=== PATIENT | female | born 1995 | race Hispanic/Latino ===

== ENCOUNTER 2017-03-20 12:56 | Emergency (ER) | payer MEDICAID, OTHER ==
[2017-03-20 13:07] VITALS: BMI 20.3
[2017-03-20 13:09] VITALS: BP 115/88; PULSE 80; RESP 16; TEMP 98.7; O2SAT 100
--- NOTE | 2017-03-20 14:12 | ED PDOC ---
HPI: Female Pain Time Seen by Provider: 03/20/17 13:12 Chief Complaint (Nursing): Female Genitourinary Chief Complaint (Provider): rash on external genitals History Per: Patient History/Exam Limitations: no limitations Onset/Duration Of Symptoms: Days Current Symptoms Are (Timing): Still Present Severity: Moderate Pain Scale Rating Of: 6 Associated Symptoms: denies: Fever, Chills, Nausea, Vomiting, Diarrhea, Loss Of Appetite, Back Pain, Chest Pain, Constipation, Urinary Symptoms Additional Complaint(s): Pt is sexually active with one partner. No protection. Past Medical History Reviewed: Historical Data, Nursing Documentation, Vital Signs Vital Signs: Last Vital Signs Temp 98.7 F 03/20/17 13:07 Pulse 80 03/20/17 13:07 Resp 16 03/20/17 13:07 BP 115/88 03/20/17 13:07 Pulse Ox 100 03/20/17 13:07 - Medical History PMH: No Chronic Diseases - Surgical History Surgical History: No Surg Hx - Family History Family History: States: No Known Family Hx - Living Arrangements Living Arrangements: With Family - Social History Current smoker - smoking cessation education provided: No - Home Medications Home Medications: Ambulatory Orders Medication Instructions Recorded valACYclovir [Valtrex] 1 gm PO BID #14 tab 03/20/17 - Allergies Allergies/Adverse Reactions: Allergies Allergy/AdvReac Type Severity Reaction Status Date / Time No Known Allergies Allergy Verified 03/20/17 13:05 Review of Systems ROS Statement: Except As Marked, All Systems Reviewed And Found Negative Constitutional: Negative for: Fever, Chills Skin: Positive for: Other Physical Exam - Reviewed Nursing Documentation Reviewed: Yes Vital Signs Reviewed: Yes - Physical Exam Appears: Positive for: Well, Non-toxic, No Acute Distress Head Exam: Positive for: ATRAUMATIC, NORMAL INSPECTION, NORMOCEPHALIC Skin: Positive for: Normal Color, Warm, DRY Eye Exam: Positive for: Normal appearance ENT: Positive for: Normal ENT Inspection Neck: Positive for: Normal, Painless ROM Respiratory: Negative for: Accessory Muscle Use, Respiratory Distress Pelvic Exam: Positive for: Other (Shallow ulcers on genitals ) Back: Positive for: Normal Inspection Extremity: Positive for: Normal ROM Lymphatic: Positive for: Inguinal Node Tenderness Neurologic/Psych: Positive for: Alert, Oriented - ECG O2 Sat by Pulse Oximetry: 100 Medical Decision Making Medical Decision Making: urine sent Disposition - Clinical Impression Clinical Impression: Genital herpes - Patient ED Disposition Is Patient to be Admitted: No Counseled Patient/Family Regarding: Diagnosis, Need For Followup, Rx Given - [facility]position [facility] Disposition: Routine/Home Disposition Time: 14:07 Condition: GOOD Prescriptions: valACYclovir [Valtrex] 1 gm PO BID #14 tab Instructions: Genital Herpes Simplex (ED)
== END 2017-03-20 15:01 | disposition home or self-care (01) ==
LOC: H.ER 12:56
DX: A60.00 Herpesviral infection of urogenital system, unspecified (principal)